=== PATIENT | female | born 1935 | race Caucasian/White ===

== ENCOUNTER 2023-10-06 09:58 | Emergency (ER) | payer MEDICARE, OTHER, SELFPAY ==
[2023-10-06 10:04] VITALS: BP 124/66
[2023-10-06 10:04] LABS: Glucose - Point of Care 139 mg/dl (70-99)
--- NOTE | 2023-10-06 10:26 | ED.GENMED ---
History of Present Illness
General
Chief Complaint: Blood Sugar Problem
Source: patient, spouse and family (2 daughters at bedside)
Exam Limitations: none
Time Seen by Provider: 10/06/23 10:17
Nursing documentation reviewed up to this point in time: agreed with
Travel History
Have you had any contact with someone who has COVID-19?: No
Do you have any symptoms of coronavirus? Fever > 100 degrees, chills, cough, shortness of breath, sore throat, loss of taste or smell, muscle aches, or headache?: No
History of Present Illness
History of Present Illness:
87 yo female w h/0 HTN, IDDM states she awakened 9 a.m. feeling 'poorly.' States nausea, no vomiting, felt shaky, chilled. [place] well last p.m., slept well through the night. Took her blood glucose but can't remember what it was, took two sugar pills
and came here. States she is feeling better, still mild nausea, declines antinausea med now. Denies CP, SOB, abdominal pain, denies UTI symptoms. Appetite has been good.
Past History
Past History
ED Past Medical History: HTN and IDDM
ED Past Surgical History: None
Social History
Tobacco: Non-smoker
Personal:
Living: with family
Review of Systems
Review of Systems
Allergies reviewed?: Yes
All Other Systems: ROS reviewed and negative except as documented in HPI and ROS
Constitutional: Reports chills; Denies fever or fatigue
EENT: Denies sore throat
Respiratory: Denies trouble breathing
Cardiac: Denies chest pain, palpitations or syncope
ABD/GI: Reports nausea; Denies abdominal pain, vomiting, diarrhea, constipated or anorexia
: Denies dysuria, frequency, flank pain, difficulty voiding or urgency
Musculoskeletal: Reports no symptoms
Skin: Reports no symptoms
Neurological: Reports no symptoms
Phy Exam
Physical Exam
Physical Exam:
GENERAL: No acute distress. A&Ox3.
CONSTITUTIONAL: Afebrile.
EYES: PERRL, conjunctivae normal
ENMT: moist mucus membranes, Pharynx nl
RESPIRATORY: Regular respirations, nonlabored, lungs clear.
CARDIOVASCULAR: Regular rate and rhythm, no murmurs, no rubs.
GI: Soft, nontender, normal BS
MUSCULOSKELETAL: Moves with ease. Well perfused.
SKIN: Warm, dry, pink
PSYCH: Normal mood and affect. Well kept, interactive and appropriate
NEUROLOGIC: Awake, alert and oriented. Speech clear, CN 2-12 intact. No focal neurological deficits, strength equal throughout
Course
Orders/Labs/Results
Orders:
Orders
10/06/23 10:36
Complete Blood Count/With Diff Urgent
Comprehensive Metabolic Panel Urgent
Abnormal Lab Results
10/06/23 10/06/23
10:02 10:36
WBC 11.3 H 10^3/uL
(4.8-10.8)
RBC 4.06 L 10^6/uL
(4.20-5.40)
MPV 11.0 H fL
(7.4-10.4)
Abs Immat Gran (auto) 0.1 H 10^3/uL
(0-0.05)
Absolute Neuts (auto) 10.8 H 10^3/uL
(1.4-6.5)
Absolute Lymphs (auto) 0.3 L 10^3/uL
(1.2-3.4)
Neutrophils % 94.9 H %
(42.2-75.2)
Lymphocytes % 2.6 L %
(20.5-51.1)
Monocytes % 1.1 L %
(1.7-9.3)
Glucose 157 H mg/dl
(70-99)
POC Glucose 139 H mg/dl
(70-99)
10/06/23 10:36
10/06/23 10:36
Vital Signs
Initial and Last Documented VS:
Initial Vital Signs
Temp Pulse Resp BP Pulse Ox
98.8 F 108 17 124/66 97
10/06/23 10:04 10/06/23 10:04 10/06/23 10:04 10/06/23 10:04 10/06/23 10:04
Last Documented Vital Signs
Temp Pulse Resp BP Pulse Ox
98.8 F 91 20 127/63 97
10/06/23 10:04 10/06/23 12:15 10/06/23 12:15 10/06/23 12:00 10/06/23 12:15
MDM/Problems Addressed
Differential Diagnosis Includes:
hypoglycemia, UTI, dehydration
MDM/Problems Addressed:
87 yo female w h/0 HTN, IDDM states she awakened 9 a.m. feeling 'poorly.' States nausea, no vomiting, felt shaky, chilled. [place] well last p.m., slept well through the night. Took her blood glucose but can't remember what it was, took two sugar pills
and came here. States she is feeling better, still mild nausea, declines antinausea med now. Denies CP, SOB, abdominal pain, denies UTI symptoms. Appetite has been good.
Afebrile NAD
12:30 PM
Patient feeling much better, no longer nauseous, she and family are anxious to get her home
She tried to give a urine sample but had a bowel movement in the container along with a urine
She has no UTI symptoms. Sent home with a container and an outpatient lab slip for UA reflex to culture.
After pt discharged, daughter went home with her and saw the glucose monitor reading during the initial event; pt's blood sugar at home during the episode was 114 so no indication for hypoglycemia.
U/A results should go to her PCP as that name was written on the out pt slip
*Critical Care Note
Total Time (30-74mins, 75-104mins- exclusive of procedures): Not Applicable
ED Attending Note
-
Portions of this chart may have been created with voice recognition software.� Occasional wrong word or��sound alike� substitutions may have occurred due to the inherent limitations of voice recognition software.
Discharge Plan
Departure
Patient Disposition: Home (Routine Discharge)
Date of Disposition: 10/06/23
Time of Disposition: 12:37
Patient with high blood pressure during this ER visit?: No
Condition: Good
Discharge Problem:
Nausea, DM2 (diabetes mellitus, type 2)
Instructions: Type 2 Diabetes (DC)
Prescriptions:
No Action
diltiazem HCl 180 MG capsule,extended release 24hr
180 mg PO BID
insulin NPH isoph U-100 human [Humulin N NPH U-100 Insulin] 100 UNIT/ML suspension
0 units SC .SLIDINGSCALE MEALS
Nephrowise 500mg
2 cap PO BID
Pgu Aid 500mg
2 cap PO BID
Referrals:
Fabricio Ryder DO [Family Provider] - As needed
Activity Restrictions/Additional Instructions:
As we discussed, continue your current Insulin regimen and other medications.
Check you blood sugars as usual 3 times a day and as needed.
You may have had low blood sugar causing your symptoms. Nothing worrisome in your workup here today.
Bring urine sample to out patient lab
Interventions
Interventions:
*Risk Screen - Suicide Last Done: 10/06/23 10:56
*General Assessment Last Done: 10/06/23 12:43
*Neglect/Abuse Screening Last Done: 10/06/23 10:56
ED- Fall Risk Assessment Last Done: 10/06/23 10:54
*ED COVID-19 Vaccine History Last Done: 10/06/23 10:53
*Nursing Disposition Last Done: 10/06/23 12:43
ED- Neurological Assessment Last Done: 10/06/23 10:53
Discharge Date and Time
Discharge Date/Time: 10/06/23 12:49
Print Language: HEBREW
[2023-10-06 10:34] VITALS: BP 141/64
[2023-10-06 10:42] LABS: % Basophils 0.4 % (0-2); % Eosinophils 0.6 % (0-6); % Immature Granulocytes 0.4 % (0-0.5); % Lymphocytes 2.6 % (20.5-51.1); % Monocytes 1.1 % (1.7-9.3); % Neutrophils 94.9 % (42.2-75.2); Absolute Eosinophils 0.1 10^3/uL (0-0.7); Absolute Immature Granulocytes 0.1 10^3/uL (0-0.05); Absolute Lymphocytes 0.3 10^3/uL (1.2-3.4); Absolute Monocytes 0.1 10^3/uL (0.1-0.6); Absolute Neutrophils 10.8 10^3/uL (1.4-6.5); Hematocrit 37.9 % (37.0-47.0); Hemoglobin 12.6 g/dL (12.0-16.0); Mean Corp Hgb Conc. 33.2 g/dL (33.0-37.0); Mean Corpuscular Volume 93.3 fL (81.0-99.0); Nucleated Red Blood Cells % 0 %; Platelet Count 174 10^3/uL (130-400); Red Blood Cell Count 4.06 10^6/uL (4.20-5.40); White Blood Cell Count 11.3 10^3/uL (4.8-10.8)
[2023-10-06 10:52] VITALS: BMI 26.9
[2023-10-06 11:00] VITALS: BP 121/57
[2023-10-06 11:05] LABS: ALT (SGPT) 21 U/L (0-35); AST (SGOT) 26 U/L (14-36); Albumin 3.9 g/dl (3.5-5.0); Alkaline Phosphatase 82 U/L (38-126); Blood Urea Nitrogen 17 mg/dl (7-17); Calcium 9.3 mg/dl (8.4-10.2); Carbon Dioxide 22 mmol/L (22-30); Chloride 104 mmol/L (98-107); Estimated Creatinine Clearance 46 ml/min; Glucose 157 mg/dl (70-99); Potassium 3.5 mmol/L (3.5-5.1); Sodium 138 mmol/L (135-145); Total Protein 6.3 g/dl (6.3-8.2); eGFR > 60.00
[2023-10-06 12:00] VITALS: BP 127/63
== END 2023-10-06 12:49 | disposition home or self-care (01) ==
LOC: EMR 09:58
PROVIDERS: Registered Nurse; EMERGENCY PHYSICIAN Emergency Medicine; FAMILY PHYSICIAN Family Medicine
DX: R11.0 Nausea (principal); R68.83 Chills (without fever); R42 Dizziness and giddiness; E11.9 Type 2 diabetes mellitus without complications; I10 Essential (primary) hypertension; Z85.3 Personal history of malignant neoplasm of breast
CPT/HCPCS: 99283; 80053; 82962; 85025

== ENCOUNTER 2024-03-20 17:51 | Inpatient (IN) | payer MEDICARE, OTHER, SELFPAY ==
[2024-03-20] VITALS (9 sets, daily range): BP systolic 134–156; BP diastolic 74–91; BMI 26.2; BMI 26.0
--- NOTE | 2024-03-20 12:05 | ED.GENMED ---
History of Present Illness
<Nyasia Segovia PA-C - Last Filed: 03/20/24 17:34>
General
Chief Complaint: Breathing Problem
Source: patient, spouse and family (2 daughters at bedside)
Exam Limitations: none
Time Seen by Provider: 03/20/24 12:00
Nursing documentation reviewed up to this point in time: agreed with
History of Present Illness
History of Present Illness:
Patient is an 88-year-old female with history hypertension, type 2 diabetes presenting to the emergency department for evaluation of worsening shortness of breath and associated lower extremity edema. Daughter states that patient has been
experiencing shortness of breath when lying flat over the past 2 weeks although seem to acutely worsen a few days ago and now is noticeable with very minimal exertion. Patient has been unable to complete her typical daily walks due to shortness of
breath. In addition�patient has been having a difficult time sleeping given symptoms while lying down. Daughter also noticed the other day that patient's ankles seemed swollen. Patient denies any pain in the ankles.
Patient does typically walk daily for 10 to 15 minutes without any difficulty. Although given symptoms at this time that she is unable to do this without becoming short of breath.
Patient does deny any chest pain, fever, chills, cough, back pain, abdominal pain, or numbness/tingling in lower extremities. No hemoptysis.
Patient has never seen a obgyn nurse in the past. No history of CAD, CHF.
Past History
<Nyasia Segovia PA-C - Last Filed: 03/20/24 17:34>
Past History
ED Past Medical History: HTN and IDDM
ED Past Surgical History: None
Social History
Tobacco: Non-smoker
Personal:
Living: with family
Review of Systems
<Nyasia Segovia PA-C - Last Filed: 03/20/24 17:34>
Review of Systems
Allergies reviewed?: Yes
All Other Systems: ROS reviewed and negative except as documented in HPI and ROS
Phy Exam
<Nyasia Segovia PA-C - Last Filed: 03/20/24 17:34>
Physical Exam
Physical Exam:
Vitals: Mildly tachycardic, hypertensive. Otherwise vital signs stable. Oxygenating 98 on room air.
General: Patient is well appearing, no acute distress
Skin: Warm and dry, no rashes or lesions
Head: Normocephalic, atraumatic
Eyes: Sclera nonicteric. EOMs intact. No nystagmus.
Throat: Protecting airway
Neck: Normal ROM, no cervical spine tenderness, no meningismus. No JVD
Cardiac: Mildly tachycardic, regular rhythm, no murmurs.
Pulm: In no apparent respiratory distress. Fine crackles at bilateral bases. Oxygenating 98% on room air
Abdomen: Mild distention. Abdomen soft with no abdominal tenderness.
Extremities: 2+ pitting edema of bilateral lower extremities. No erythema, warmth, or tenderness of bilateral lower extremities. Palpable DP pulses bilaterally.
Neuro: Grossly intact.
Psychiatric: Normal affect.
Scores
<Nyasia Segovia PA-C - Last Filed: 03/20/24 17:34>
Heart Failure Risk
Heart Failure Risk Score: Yes
History of Stroke or TIA: No
History of intubation for respiratory distress: No
Heart rate on ED arrival >/= 110: No
SaO2 <90% on arrival on room air: No
HR >/=110 during 3min walk test (or too ill to perform test): No
ECG has acute ischemic changes: No
Urea >/=12mmol/L (BUN 33.6mg/dL): No
Serum CO2>/=35mmol/L: No
Troponin I or T elevated to AL Level (0.4mg/dL): No
NT-proBNP >/=5,000ng/L (5,000pg/ml): Yes
HF Risk Score: 1
Admission Status: MEDIUM RISK 5.1% Consider observation or discharge to home with homecare & f/u visit to PCP/[facility], or SNF for treatment
Course
<Nyasia Segovia PA-C - Last Filed: 03/20/24 17:34>
Orders/Labs/Results
Orders:
Orders
03/20/24 12:32
Electrocardiogram (*1) Urgent
Reason for Study: Shortness of Breath
EKG- Treatment ONCE
CR Chest - 2 Views Urgent
Comment:
Reason For Exam: Exertional SOB, orthopnea
03/20/24 13:13
Complete Blood Count/With Diff Urgent
Comprehensive Metabolic Panel Urgent
NT-proBNP Urgent
Troponin I Urgent
03/20/24 Dinner
1800 calorie (15 carb) Diabetic
Diabetic Diet: Sodium, 2 Gram
03/20/24 15:05
Furosemide [Lasix] 40 mg IV NOW STA
03/20/24 15:33
Admit Patient As Directed
Co-Sign Provider:
Level of Care: Inpatient admission
Assign to:: Medical/Surgical
Physician / Group: Hospitalist
Diagnosis: Acute CHF Exacerbation
Patient Condition: Good
Reason for Hospitalization: Acute CHF Exacerbation
Expected length of stay greater than two midnights?: Yes
ELOS- Estimated Length of Stay in days: 3
I certify the patient meets the requirements for IP care: Yes
Code Status As Directed
Resuscitation Status: Full Code
HF DIETARY CONSULT Routine
HF EDUCATOR CONSULT Routine
Comment:
Activity As Directed
Activity Level: Out of Bed-Early Mobility
Intake/ Output As Directed
Frequency: Per unit guidelines
Patient Education As Directed
Type: CHF folder
Comment: give on admission. Document in Interdisciplinary Education record
Sleep Apnea Assessment by RN As Directed
Comment:
Physician Instructions:
Vital Signs As Directed
Frequency: Other
Additional Instructions:: Q12 or per unit guidelines if more frequent.
Weight As Directed
Frequency: Daily
Type of Scale: Standing Scale
Comment: Daily morning weight. If unable to stand, use balanced bed scale.
Weight As Directed
Frequency: Once
Type of Scale: Standing Scale
Comment: Upon Admission. If unable to stand, use balanced bed scale.
PRN Pain Medication Management As Directed
May give lesser potent ordered pain med per pt: Yes
preference::
Protocol:: Medication orders for pain may be administered in a
manner that supports deferring to patient preference
when the pt is:
- Requesting an ordered lesser potent pain medication.
Least to most potent pain medications are defined
as: acetaminophen < NSAID < tramadol < opioids
(morphine, oxycodone, hydromorphone).
- Requesting a lesser dose of the same medication IF
ORDERED.
- Requesting a less intrusive route of administration
if both routes are prescribed by the provider (PO <
IV).
Pulse Ox/cont/shift [RESP] Routine
Quantity: 1
Special Instructions: Daily pulse oximetry at rest. If greater than 92% at rest also obtain pulse oximetry
while ambulating as tolerated.
03/20/24 15:34
DX Deep Vein Thrombosis Video Routine
03/20/24 15:36
Echo 2D MMode Color/Doppler Routine
Reason for Study: heart failure
03/20/24 16:00
Flush (0.9% Sodium Chloride) [Flush (Nss)] See Dose Instructions IV PER PROTOCOL
Furosemide [Lasix] 40 mg IV BID AT 0800,1600
03/20/24 16:28
CARDIOLOGY CONSULT Routine
Consulting Provider: Amado Barber
Was physician already notified: Yes
Reason for consult: New Diagnosis Acute CHF Exacerbation
03/20/24 16:45
I&O [Intake/ Output] As Directed
Frequency: Per unit guidelines
Comment: daily
03/20/24 18:00
Enoxaparin Sodium [Lovenox] 40 mg SC QPM
03/21/24 16:00
Furosemide [Lasix] 40 mg IV BID AT 0800,1600
Abnormal Lab Results
03/20/24
13:13
RBC 3.93 L 10^6/uL
(4.20-5.40)
Hgb 11.7 L g/dL
(12.0-16.0)
Hct 35.0 L %
(37.0-47.0)
MPV 11.3 H fL
(7.4-10.4)
Abs Immat Gran (auto) 0.1 H 10^3/uL
(0-0.05)
Absolute Neuts (auto) 7.2 H 10^3/uL
(1.4-6.5)
Absolute Lymphs (auto) 1.1 L 10^3/uL
(1.2-3.4)
Neutrophils % 78.2 H %
(42.2-75.2)
Lymphocytes % 12.1 L %
(20.5-51.1)
BUN 19 H mg/dl
(7-17)
Glucose 181 H mg/dl
(70-99)
03/20/24 13:13
03/20/24 13:13
Vital Signs
Initial and Last Documented VS:
Initial Vital Signs
Temp Pulse Resp BP Pulse Ox
97.8 F 107 18 154/91 98
03/20/24 11:54 03/20/24 11:54 03/20/24 11:54 03/20/24 11:54 03/20/24 11:54
Last Documented Vital Signs
Temp Pulse Resp BP Pulse Ox
97.8 F 94 32 138/90 100
03/20/24 11:54 03/20/24 16:00 03/20/24 16:00 03/20/24 16:00 03/20/24 16:00
<Jessica Del Castillo, DO - Last Filed: 03/20/24 15:08>
Orders/Labs/Results
Orders:
Orders
03/20/24 12:32
Electrocardiogram (*1) Urgent
Reason for Study: Shortness of Breath
EKG- Treatment ONCE
CR Chest - 2 Views Urgent
Comment:
Reason For Exam: Exertional SOB, orthopnea
03/20/24 13:13
Complete Blood Count/With Diff Urgent
Comprehensive Metabolic Panel Urgent
NT-proBNP Urgent
Troponin I Urgent
03/20/24 Dinner
1800 calorie (15 carb) Diabetic
Diabetic Diet: Sodium, 2 Gram
03/20/24 15:05
Furosemide [Lasix] 40 mg IV NOW STA
03/20/24 15:33
Admit Patient As Directed
Co-Sign Provider:
Level of Care: Inpatient admission
Assign to:: Medical/Surgical
Physician / Group: Hospitalist
Diagnosis: Acute CHF Exacerbation
Patient Condition: Good
Reason for Hospitalization: Acute CHF Exacerbation
Expected length of stay greater than two midnights?: Yes
ELOS- Estimated Length of Stay in days: 3
I certify the patient meets the requirements for IP care: Yes
Code Status As Directed
Resuscitation Status: Full Code
HF DIETARY CONSULT Routine
HF EDUCATOR CONSULT Routine
Comment:
Activity As Directed
Activity Level: Out of Bed-Early Mobility
Intake/ Output As Directed
Frequency: Per unit guidelines
Patient Education As Directed
Type: CHF folder
Comment: give on admission. Document in Interdisciplinary Education record
Sleep Apnea Assessment by RN As Directed
Comment:
Physician Instructions:
Vital Signs As Directed
Frequency: Other
Additional Instructions:: Q12 or per unit guidelines if more frequent.
Weight As Directed
Frequency: Daily
Type of Scale: Standing Scale
Comment: Daily morning weight. If unable to stand, use balanced bed scale.
Weight As Directed
Frequency: Once
Type of Scale: Standing Scale
Comment: Upon Admission. If unable to stand, use balanced bed scale.
PRN Pain Medication Management As Directed
May give lesser potent ordered pain med per pt: Yes
preference::
Protocol:: Medication orders for pain may be administered in a
manner that supports deferring to patient preference
when the pt is:
- Requesting an ordered lesser potent pain medication.
Least to most potent pain medications are defined
as: acetaminophen < NSAID < tramadol < opioids
(morphine, oxycodone, hydromorphone).
- Requesting a lesser dose of the same medication IF
ORDERED.
- Requesting a less intrusive route of administration
if both routes are prescribed by the provider (PO <
IV).
Pulse Ox/cont/shift [RESP] Routine
Quantity: 1
Special Instructions: Daily pulse oximetry at rest. If greater than 92% at rest also obtain pulse oximetry
while ambulating as tolerated.
03/20/24 15:34
DX Deep Vein Thrombosis Video Routine
03/20/24 15:36
Echo 2D MMode Color/Doppler Routine
Reason for Study: heart failure
03/20/24 16:00
Flush (0.9% Sodium Chloride) [Flush (Nss)] See Dose Instructions IV PER PROTOCOL
Furosemide [Lasix] 40 mg IV BID AT 0800,1600
03/20/24 16:28
CARDIOLOGY CONSULT Routine
Consulting Provider: Amado Barber
Was physician already notified: Yes
Reason for consult: New Diagnosis Acute CHF Exacerbation
03/20/24 16:45
I&O [Intake/ Output] As Directed
Frequency: Per unit guidelines
Comment: daily
03/20/24 18:00
Enoxaparin Sodium [Lovenox] 40 mg SC QPM
03/21/24 16:00
Furosemide [Lasix] 40 mg IV BID AT 0800,1600
Abnormal Lab Results
03/20/24
13:13
RBC 3.93 L 10^6/uL
(4.20-5.40)
Hgb 11.7 L g/dL
(12.0-16.0)
Hct 35.0 L %
(37.0-47.0)
MPV 11.3 H fL
(7.4-10.4)
Abs Immat Gran (auto) 0.1 H 10^3/uL
(0-0.05)
Absolute Neuts (auto) 7.2 H 10^3/uL
(1.4-6.5)
Absolute Lymphs (auto) 1.1 L 10^3/uL
(1.2-3.4)
Neutrophils % 78.2 H %
(42.2-75.2)
Lymphocytes % 12.1 L %
(20.5-51.1)
BUN 19 H mg/dl
(7-17)
Glucose 181 H mg/dl
(70-99)
03/20/24 13:13
03/20/24 13:13
Vital Signs
Initial and Last Documented VS:
Initial Vital Signs
Temp Pulse Resp BP Pulse Ox
97.8 F 107 18 154/91 98
03/20/24 11:54 03/20/24 11:54 03/20/24 11:54 03/20/24 11:54 03/20/24 11:54
Last Documented Vital Signs
Temp Pulse Resp BP Pulse Ox
97.8 F 94 32 138/90 100
03/20/24 11:54 03/20/24 16:00 03/20/24 16:00 03/20/24 16:00 03/20/24 16:00
<Nyasia Segovia PA-C - Last Filed: 03/20/24 17:34>
MDM/Problems Addressed
Differential Diagnosis Includes:
Not limited to: New onset CHF, ACS, pleural effusion, pneumonia, cardiac arrhythmia, anemia, viral illness
MDM/Problems Addressed:
88-year-old female presents with exertional dyspnea and orthopnea progressively worsening over the past few weeks with new onset bilateral lower extremity edema. No chest pain, fevers, cough, or other infectious symptoms. No history of similar
symptoms. Patient mildly tachycardic, otherwise vital signs stable on arrival. She is afebrile and oxygenating well at 98% on room air. Physical exam as above. Patient is in no apparent respiratory distress. Heart mildly tachycardic, normal
rhythm. Fine crackles heard at bilateral bases. Abdomen soft and nontender, although mildly distended. She does have 1+ pitting edema in bilateral lower extremities. Patient does appear clinically fluid overloaded. Differentials broad although
include new onset CHF, viral infection, anemia, cardiac arrhythmia, etc. lower suspicion for infectious etiology given patient is afebrile with no other infectious symptoms. Will check labs, troponin, proBNP. Will check chest x-ray. EKG without
any acute signs of ischemia. Will closely monitor and reassess. Anticipate admission.
Chronic conditions affecting care:
Hypertension, type 2 diabetes
Acute Exacerbation and/or Progression of Chronic Illness:
Acutely hypertensive
<Nyasia Segovia PA-C - Last Filed: 03/20/24 17:34>
*Radiology
Radiology exam reviewed: preliminary read by ED provider and radiology read reviewed
*Pulse Oximetry
Patient hypoxic: no
*EKG
Interpreted by ED Provider?: Yes
EKG Intrepretation Date: 03/20/24
Interpretation: normal
Comparison EKG: changes noted
Heart Rate: 95
Rate: normal
Rhythm: sinus
[place]: left axis deviation
Interval: normal interval
Ischemia: non-specific ST changes
*Demo Event Specialist Interpretation
Rate: normal
Interpretation: normal
Heart Rate: 92
Rhythm: sinus
*Critical Care Note
Total Time (30-74mins, 75-104mins- exclusive of procedures): Not Applicable
<Nyasia Segovia PA-C - Last Filed: 03/20/24 17:34>
Patient Management
Discussion with other providers: Hospitalist
Escalation/DeEscalation of care consider admission/obs:
Admit for further evaluation, echocardiogram, and continue diuresis
<Nyasia Segovia PA-C - Last Filed: 03/20/24 17:34>
Update Note
Update Note:
Update: Labs reviewed. No clinically significant abnormalities on blood counts, chemistry panel. Troponin is normal. BNP is elevated at 5350. Chest x-ray shows findings consistent of mild pulmonary edema. Findings consistent with likely CHF.
Do not suspect infectious process. Patient is relatively stable oxygenating well on room air. Patient does appear clinically fluid overloaded on exam. Given likely new onset CHF�will admit to hospital for further evaluation/continue diuresis.
Patient will likely require echocardiogram. Will give 40 IV Lasix emergency department. Patient admitted to hospitalist service in stable condition.
ED Attending Note
<Nyasia Segovia PA-C - Last Filed: 03/20/24 17:34>
-
Portions of this chart may have been created with voice recognition software.� Occasional wrong word or��sound alike� substitutions may have occurred due to the inherent limitations of voice recognition software.
<Jessica Del Castillo DO - Last Filed: 03/20/24 15:08>
ED Attending Note
Patient seen and examined by attending physician: Yes
I performed the substantive portion of visit, reviewed & personally made and approve the management plan that is documented in note by myself or LIBAN.: Yes
I performed a history and physical exam of patient and discussed management with resident, I reviewed resident's note and agree with documented findings and plan of care.: Yes
ED Attending Note:
88-year-old female with history of diabetes and hypertension presenting to the emergency department for progressive dyspnea. Patient arrives with family, note for the past 2 weeks she has been having increased dyspnea, particular with any type of
exertion. She has had a difficulty walking to get her mail from her mailbox. Last evening had difficulty sleeping, could not lay flat. Denies any known history of congestive heart failure. She has been having lower extremity swelling. Denies
chest pain. Denies fever or cough. Vital signs on arrival significant for high blood pressure.
On exam patient is in no acute respiratory distress. On pulmonary exam, crackles at the bases, no significant increased work of breathing. +1-2 lower extremity edema. No erythema or warmth on palpation to the extremities. Suspect new onset heart
failure. Plan for laboratory analysis and chest x-ray imaging. Lower suspicion for infectious pathology.
15:00 - Chest x-ray does show pulmonary edema and BNP is elevated, again consistent with new onset heart failure. Will start on Lasix. Plan for admission for cardiac consultation and continue diuresis
Discharge Plan
Departure
Patient Disposition: Admit
Date of Disposition: 03/20/24
Time of Disposition: 15:05
Presentation/result/management discussed w/ accepting MD/DO: Hospitalist
Discharge Problem:
New onset of congestive heart failure, [place] (dyspnea on exertion), Orthopnea
Prescriptions:
No Action
diltiazem HCl 180 MG capsule,extended release 24hr
180 mg PO BID
Humulin N NPH U-100 Insulin 100 UNIT/ML suspension
0 unit SC AC
Rx Instructions:
SLIDING SCALE
Nephrowise 500mg
2 cap PO BID
Pgu Aid 500mg
2 cap PO BID
vanadyl 10 mg Tablet
10 mg PO BID
ascorbic acid (vitamin C) [Vitamin C] 500 mg Tablet
500 mg PO BID
aspirin 81 mg Tablet,Chewable
81 mg PO DAILY
vitamin B complex Tablet
1 tab PO BID
cholecalciferol (vitamin D3) [Vitamin D3] 125 mcg (5,000 unit) Tablet
125 mcg PO DAILY
omega 8-[id number]-tgt-fish oil [Fish Oil] 1,000 (120-180) mg Capsule
1 cap PO BID
Nattokinase 50 mg Capsule
50 mg PO AC
vitamin K2 90 mcg Capsule
90 mcg PO DAILY
Referrals:
Fabricio Ryder DO [Family Provider] -
Interventions
Interventions:
*Risk Screen - Suicide Last Done: 03/20/24 13:25
*General Assessment Last Done: 03/20/24 13:25
*Neglect/Abuse Screening Last Done: 03/20/24 14:31
ED- Fall Risk Assessment Last Done: 03/20/24 13:25
*ED COVID-19 Vaccine History Last Done: 03/20/24 13:25
ED- Cardiac Assessment Last Done: 03/20/24 13:25
ED- Pulmonary Assessment Last Done: 03/20/24 13:25
Discharge Date and Time
Print Language: SERBIAN
[2024-03-20 13:33] LABS: % Basophils 0.8 % (0-2); % Eosinophils 1.7 % (0-6); % Immature Granulocytes 0.5 % (0-0.5); % Lymphocytes 12.1 % (20.5-51.1); % Monocytes 6.7 % (1.7-9.3); % Neutrophils 78.2 % (42.2-75.2); Absolute Basophils 0.1 10^3/uL (0-0.2); Absolute Eosinophils 0.2 10^3/uL (0-0.7); Absolute Immature Granulocytes 0.1 10^3/uL (0-0.05); Absolute Lymphocytes 1.1 10^3/uL (1.2-3.4); Absolute Monocytes 0.6 10^3/uL (0.1-0.6); Absolute Neutrophils 7.2 10^3/uL (1.4-6.5); Hemoglobin 11.7 g/dL (12.0-16.0); Mean Corp Hgb Conc. 33.4 g/dL (33.0-37.0); Mean Corpuscular Hgb 29.8 pg (27.0-31.0); Mean Corpuscular Volume 89.1 fL (81.0-99.0); Mean Platelet Volume 11.3 fL (7.4-10.4); Nucleated Red Blood Cells % 0 %; Platelet Count 200 10^3/uL (130-400); Red Blood Cell Count 3.93 10^6/uL (4.20-5.40); Red Cell Dist. Width 13.8 % (11.5-14.5); White Blood Cell Count 9.2 10^3/uL (4.8-10.8)
[2024-03-20 13:48] LABS: ALT (SGPT) 24 U/L (0-35); AST (SGOT) 30 U/L (14-36); Albumin 3.9 g/dl (3.5-5.0); Alkaline Phosphatase 85 U/L (38-126); Blood Urea Nitrogen 19 mg/dl (7-17); Carbon Dioxide 22 mmol/L (22-30); Chloride 107 mmol/L (98-107); Glucose 181 mg/dl (70-99); Potassium 3.5 mmol/L (3.5-5.1); Sodium 143 mmol/L (135-145); Total Bilirubin 0.8 mg/dl (0.2-1.3); Total Protein 6.3 g/dl (6.3-8.2); eGFR > 60.00
[2024-03-20 13:57] LABS: NT-proBNP 5350 pg/ml; Troponin I 0.022 ng/ml
--- NOTE | 2024-03-20 15:13 | W.PN.UPDATE ---
Update Note
Progress Note Update
I personally performed a history and physical exam of the patient and discussed management with the resident. I reviewed the resident's note and agree with the documented findings and plan of care HPI/CC.
88-year-old female presents with chief complaints of shortness of breath and lower extremity edema.
137/76, 89, 20, 97.8 �F, 94% RA
Gen: NAD, AAOx3.
Eyes: EOMI, PERRLA, no scleral icterus.
Neck: supple.
CV: RRR, +S1/S2, no m/r/g.
Resp: very faint rales in the bases, wheezes, or rhonchi.
Abd: +BS, soft, NT, ND
Skin: No rashes. trace LE edema
Neuro: CN 2-12 intact, non-focal.
Psych: Normal mood and affect.
Lab Results
03/20/24
13:13
WBC 9.2
RBC 3.93 L
Hgb 11.7 L
Hct 35.0 L
MCV 89.1
MCH 29.8
MCHC 33.4
RDW 13.8
Plt Count 200
MPV 11.3 H
Abs Immat Gran (auto) 0.1 H
Absolute Neuts (auto) 7.2 H
Absolute Lymphs (auto) 1.1 L
Absolute Monos (auto) 0.6
Absolute Eos (auto) 0.2
Absolute Basos (auto) 0.1
Immature Gran % 0.5
Neutrophils % 78.2 H
Lymphocytes % 12.1 L
Monocytes % 6.7
Eosinophils % 1.7
Basophils % 0.8
Nucleated RBC % 0
Sodium 143
Potassium 3.5
Chloride 107
Carbon Dioxide 22
BUN 19 H
Creatinine 0.8
eGFR > 60.00
Glucose 181 H
Calcium 10.0
Total Bilirubin 0.8
AST 30
ALT 24
Alkaline Phosphatase 85
Troponin I 0.022
Ogt-I-Wctvrxmvowx Pept 5350
Total Protein 6.3
Albumin 3.9
CXR (read by me): Overall pulmonary findings are consistent with changes of COPD. In addition cardiomegaly and mild increase in pulmonary vascularity suggests possible CHF.
Acute CHF Exac:
-check echo, GDMT to be determined based on echo
-cont with Lasix 40mg IV Q12H
-daily wts, I/Os
-c/s cardiology
[2024-03-20] MEDS: LASIX 40 MG IV (15:51)
--- NOTE | 2024-03-20 16:30 | HPS.HSE ---
Family Physician
-
Family Physician: Fabricio Ryder
Chief Complaint
-
Dyspnea of Exertion, Leg Swelling
History of Present Illness
Laura Zuniga is a pleasant 88 yo woman who was brought to the ED by her daughter for 2 weeks of increased shortness of breath, dyspnea on exertion, leg swelling and trouble sleeping.
The daughter reports that her mother has been having shortness of breath on their daily walks over the last 2 weeks, which she could previously tolerate without issue. She has also been having trouble sleeping due to shortness of breath. It was also
noticed that there was swelling in the legs which has never happened before. Today, her daughter checked a pulse Ox on Mrs. Sanchez which was 88%. At this point, they decided to bring her to the ED for evaluation.
She was given one dose of 40mg IV Lasix prior to my evaluation and her O2 saturations have been between 89% and 100% on RA.
Medical History
Past Medical History
Past Medical History: Reports HTN and IDDM (20-25 Units AM, 15-20 Units PM )
Past Surgical History: Reports Tonsilectomy
Social History
Unable to obtain full social history at this time due to: Dementia (Pleasant but forgetful)
Tobacco: Non-smoker
Alcohol: Daily (1 glass of wine with dinner 5d/week, x10 years)
Drug: None
Personal:
Living: With Family
Employment: Retired
Family History
Family History: Diabetes
Allergies / Home Medications
Allergies reflects when Allergies were last updated in [facility].
Home Medications with original date entered in [facility]
Allergy/Medication List:
Allergies
Allergy/AdvReac Type Severity Reaction Status Date / Time
No Known Allergies Allergy Verified 03/20/24 11:57
Review of Systems
-
Unable to obtain full review of systems at this time due to: Dementia
History Source: Patient and Family
A 12 point ROS was completed and negative except as noted: Yes
Constitutional: Reports No Symptoms
EENT: Reports No Symptoms
Respiratory: Reports Trouble Breathing
Cardiac: Reports No Symptoms
Abdomen/GI: Reports No Symptoms
: Reports Incontinence (Chronic; unchanged)
Musculoskeletal: Reports Edema (BL LE swelling)
Skin: Reports No Symptoms
Neurological: Reports No Symptoms
Endocrine: Reports No Symptoms
Hematologic/Lymphatic: Reports No Symptoms
Psych: Reports Dementia (Memory/Cognitive decline over the past few years)
Physical Exam
Vital Signs
Vital Signs
Temp Pulse Resp BP Pulse Ox
97.8 F 94 32 138/90 100
03/20/24 11:54 03/20/24 16:00 03/20/24 16:00 03/20/24 16:00 03/20/24 16:00
Physical Exam
General: Well Developed, Well Nourished, No Apparent Distress, Comfortable and Conversant; No Appears in Distress
HEENT: NormoCephalic, Anicteric, Moist mucous membranes, Atraumatic and PERRLA
Respiratory: Crackles (mild end inspiratory crackles at the BL bases)
Cardiac: S1/S2 and Regular Rhythm
Breast: Deferred by me
GI: Soft, Non Tender, Non Distended and Normal Bowel Sounds
Rectal: Deferred by Provider
Genito-urinary: Deferred by me
Musculoskeletal: No Clubbing, No Cyanosis, Edema, Left Lower Extremity (1+) and Edema, Right Lower Extremity (1+)
Neuro: Awake, Alert, Oriented, No Motor Deficits and No Sensory Deficits
Psych: Calm
Laboratory Results
-
03/20/24 13:13
03/20/24 13:13
Laboratory Results
Total Bilirubin 0.8 mg/dl (0.2-1.3) 03/20/24 13:13
AST 30 U/L (14-36) 03/20/24 13:13
ALT 24 U/L (0-35) 03/20/24 13:13
Alkaline Phosphatase 85 U/L (38-126) 03/20/24 13:13
Troponin I 0.022 ng/ml 03/20/24 13:13
Impression/Plan
-
88yo Female with a PMHx of HTN, IDDM who presented with Dyspnea on exertion x2 weeks & BL LE leg swelling
Daughters Chelsea & Kylie
#Most Likely Acute Exacerbation of Heart Failure
- Prob BNP -5350. CXR (+) increased pulmonary vascularity & enlarged heart. Pending Echo
- S/p 40mg IV Lasix
- daily I/Os, daily weights, c/w Lasix 40mg BID
- trend BMP
- Cardiology consulted, will see in the AM. Pending recommendations for possible GDMT following Echo results/EF%.
#Hypertension - c/w home Diltiazem 180mg BID
Holding other vitamins during this time.
#Dispo - Med/surg + Tele
#Diet - Diabetic Diet/ <2g salt
#DVT PPx - Lovenox SC
#Code Status - Full Code
[2024-03-20] MEDS: LOVENOX 40 MG SC (21:11)
[2024-03-20] MEDS: CARDIZEM CD 180 MG PO (21:11)
[2024-03-20 21:12] LABS: Glucose - Point of Care 119 mg/dl (70-99)
[2024-03-20] MEDS: HUMULIN N KWIKPEN 11 UNITS SC (21:26)
--- NOTE | 2024-03-20 21:30 | PTCARENOTE ---
Pt arrived to unit @ 1945 vis stretcher able to walk with assistance to bed. Pt's daughter assisted with admission questions. Pt 2 daughters are very involved in pt's care managing her daily medications and ADLs at pt's own home with pt's spouse.
Daughter reports that they manage pt's blood glucose with s/s insulin depending on her meal and prefer for her not to have scheduled insulin. I spoke with HP for this evening and reported to give her 11 units per daughters request. Daughter also
reports her mother has dementia and can be confused when woken up. Bed alarm placed and activated for this shift. Pt and daughter oriented to room and hospital policies, VSS, call pappas within reach
--- NOTE | 2024-03-20 21:30 | W.PN.UPDATE ---
Update Note
Progress Note Update
Family requested insulin to be 11 units this evening. Order changed to reflect this request.
--- NOTE | 2024-03-21 02:08 | PTCARENOTE ---
Pt daughters, who manage pt's daily medications @ home report they give s/s NPH insulin according to pt's meals and blood glucose. Currently the pt has scheduled 0800 and 2000 doses. Pt's daughter are concerned r/t to pt's oral intake and that her
blood glucose can drop quick. She would like the MD to speak with them concerning the dose of insulin gong forward next shift.
[2024-03-21 02:36] LABS: Glucose - Point of Care 131 mg/dl (70-99)
--- NOTE | 2024-03-21 02:36 | PTCARENOTE ---
blood glucose checked at this time per family request 131. Pt has no s/s of hypoglycemia.
--- NOTE | 2024-03-21 07:18 | CON.CAR ---
Addendum entered and electronically signed by Jacinto Solorio MD 03/21/24 12:11:
I saw and examined the patient.
The JAMMER HOOKER or PA's note was reviewed and I agree with the note.
Comment: General: Well developed, well nourished in NAD.
Neck: Supple, no JVD, HJR, carotids +2 B/L, no bruits bilaterally.
Heart: Non displaced PMI, RRR, no murmurs, No S3, S4, no rubs.
Lungs: Clear to auscultation bilaterally, no wheeze, rhonchi, rubs bilaterally,
normal expiratory phase.
Extremities: No clubbing, cyanosis or edema bilaterally.
Neuro: Grossly nonfocal, awake, alert and oriented x3.
Laura has a history of diabetes, cognitive impairment, acute kidney injury after IV contrast. She presented with increasing dyspnea on exertion for 2 weeks, orthopnea, lower extremity edema. Home pulse ox was 88%. She is admitted with acute
systolic CHF with proBNP of 5350. Echocardiogram with ejection fraction of 20% with moderate to severe MR. She has had significant improvement with IV Lasix.
Long discussed with patient and patient's daughter both in person and by phone. We discussed possible cardiac catheterization as the most common cause of cardiomyopathy is CAD. However patient and daughters prefer medical therapy for now. Will
start Toprol and stop diltiazem. Will start losartan as well. Will check on the cost of Farxiga/Jardiance as well. Might consider eventual Aldactone. Will continue to follow renal function closely. Might consider change to oral Lasix and
discharge on 03/22. Of note patient might consider catheterization if does poorly on medical therapy or if her ejection fraction does not improve. We would have to have discussion about AICD if ejection fraction remains less than 35%. Discussed
with primary service as well.
Original Note:
Documented by User: ANABELA Sanchez 03/21/24 11:51
Consultation
Consultation Request
Date/Time Consultation Requested: 03/20/24 1630
Date/Time Consultation Performed: 03/21/24 0730
Requesting Provider: Gio Vieyra MD
Performing Provider: ANABELA Sanchez for
Reason for Consultation: new acute heart failure
Medical History
-
Chief Complaint: [place]
History of Present Illness:
88 year old female with past medical history hypertension, type 1 diabetes, cognitive impairment, acute kidney injury following IV contrast who presented to the ED 03/20/2024 with 2-week history of dyspnea on exertion, orthopnea, and lower extremity
edema. Home pulse ox was 88% and family decided to bring her in for evaluation. Labs in the ER showed proBNP 5350, troponin 0.022. A chest x-ray showed findings consistent with changes of COPD, cardiomegaly, and possible heart failure. An
echocardiogram showed an EF of 20% with severe LV dilatation and global hypokinesis, and mod/severe to severe MR. She was given a dose of 40 mg IV Lasix with improvement in O2 sats and symptoms.
Cardiology is consulted for new diagnosis of heart failure reduced EF.
Patient reports she feels well and currently denies shortness of breath, chest pain, palpitations, lightheadedness, PND, orthopnea, edema.
She is unclear why she came into the hospital yesterday, just that she did not feel well.
I spoke with her daughter Chelsea Joshi, to review past medical history and onset of symptoms.
Past medical history:
Hypertension
Type 1 diabetes
Cognitive impairment
Stage 1 breast CA
Acute kidney injury following IV contrast for CT scan 01/21 (CT scan w/ contrast for eval of L breast mass at [facility])- creatinine 9, potassium 5.8, thought to be acute kidney injury due to contrast with addition of CARITO inhibitor.
Lisinopril and Indapamide stopped - changed to Diltiazem for HTN. Creatinine improved to normal range.
Echo 03/20/24 EF 20%, dilated LV with global hypokinesis, normal RV, mod-severe MR, mild TR, PASP 38 mmHg
Social History
Tobacco: Non-Smoker
Alcohol: Occasional
Drug: None
Personal:
Living: With Family
Family History
Family History: Diabetes
Allergies / Home Medications
Allergy/AdvReac Type Severity Reaction Status Date / Time
No Known Allergies Allergy Verified 03/20/24 11:57
�Medication �Instructions �Recorded �Confirmed �Type
Nephrowise 500mg 2 cap PO BID 01/17/20 03/20/24 History
Pgu Aid 500mg 2 cap PO BID 01/17/20 03/20/24 History
diltiazem HCl 180 mg 180 mg PO BID 01/17/20 03/20/24 History
capsule,extended release 24 hr
insulin NPH isoph U-100 human 100 0 unit SC AC 01/17/20 03/20/24 History
unit/mL subcutaneous suspension
(Humulin N NPH U-100 Insulin
(isophane susp))
ascorbic acid (vitamin C) 500 mg 500 mg PO BID 03/20/24 03/20/24 History
tablet (Vitamin C)
aspirin 81 mg chewable tablet 81 mg PO DAILY 03/20/24 03/20/24 History
cholecalciferol (vitamin D3) 125 125 mcg PO DAILY 03/20/24 03/20/24 History
mcg (5,000 unit) tablet (Vitamin
D3)
omega 0-ydf-ujz-fish oil 1,000 mg 1 cap PO BID 03/20/24 03/20/24 History
(120 mg-180 mg) capsule (Fish Oil)
soybean, fermented 50 mg capsule 50 mg PO AC 03/20/24 03/20/24 History
(Nattokinase)
vanadyl 10 mg tablet 10 mg PO BID 03/20/24 03/20/24 History
vitamin B complex 1 tab PO BID 03/20/24 03/20/24 History
vitamin K2 90 mcg capsule 90 mcg PO DAILY 03/20/24 03/20/24 History
Review of Systems
-
Unable to obtain full review of systems at this time due to: Dementia
History Source: Patient and Family
All other systems: Negative unless noted
Physical Exam
Vital Signs
Temp Pulse Resp BP Pulse Ox
98.9 F 99 18 134/74 94
03/20/24 23:02 03/20/24 23:02 03/20/24 23:02 03/20/24 23:02 03/20/24 23:02
Lab Results
03/20/24 13:13
03/20/24 13:13
Troponin I 0.022 ng/ml 03/20/24 13:13
Xpi-M-Wxqxjrpnnzd Pept 5350 pg/ml 03/20/24 13:13
GEN: No distress, awake, Ox3
HEENT: supple, anicteric, mmm
LUNGS: CTA, no wheezes/rales
CV: Reg, S1/S2, no murmur
ABD: soft, BS+, NT/ND
EXT: No edema
NEURO: Gross non-focal
SKIN: No rash
Impression / Plan
-
PCP:Dr Fabricio Ryder
Primary Hand Edge Bander:
Impression:
acute HFrEF
HTN
DM Type 1
[place]
LE edema
dementia
Acute kidney injury secondary to IV contrast 01/21
Stage I breast CA 2019
Cardiovascular studies:
Echo 03/20/24 EF 20%, dilated LV with global hypokinesis, normal RV, mod-severe MR, mild TR, PASP 38 mmHg
EK03/20/24 personally reviewed: NSR, LAD, can't r/o ant DE, nonspecific T wave abnormality
Plan:
1. Acute heart failure with reduced EF
-responded well to 1 dose of IV Lasix with improvement in shortness of breath and edema. Patient has no prior history of decompensated heart failure and has not had an echocardiogram in the past. Would start GDMT-stop diltiazem and start Toprol.
Trial of low-dose ARB with close monitoring of renal function given acute kidney injury in the past which was thought to be caused by IV contrast from a CT scan. Could consider adding SGLT-2 inhibitor in future if renal function stable with
addition of ARB. Spoke with daughter about further evaluation of new cardiomyopathy including ischemic workup. Patient has had no anginal symptoms and troponin negative but given history of diabetes and age, has risk factors.
-Change to oral Lasix starting tomorrow
-Low-sodium diet
-I's/O and daily weights
-Place on telemetry
2. Hypertension
-Has been on diltiazem for hypertension which is contraindicated in heart failure. Changed to beta-alison/ARB as above. Blood pressure is controlled.
3. Cognitive dysfunction
-Discussed with daughter potential workup for new cardiomyopathy. Family would like to talk to PCP to further discuss her case/new diagnosis.
4. Type 1 diabetes
-Managed with Insulin.
Spoke with daughter Chelsea Joshi [phone]
Data Reviewed
-
EKG: Tracing Personally Visualized and interpreted
Radiology: Image Personally Visualized and interpreted and Report Reviewed by me
Medical Tests (Nuc Med, Echo etc): Report Reviewed by me
Labs: Labs Reviewed by me

Documented by User: César Davis MD 03/21/24 08:57
Consultation
Consultation Request
Performing Provider: ANABELA Sanchez for Jacinto Solorio MD
Medical History
-
History of Present Illness:
88 year old female with past medical history hypertension, type 1 diabetes, dementia presented to the ED 03/20/2024 with 2-week history of dyspnea on exertion, orthopnea, and lower extremity edema. Home pulse ox was 88%. Labs in the ER showed
proBNP 5350, troponin 0.022. A chest x-ray showed findings consistent with changes of COPD, cardiomegaly, and possible heart failure. An echocardiogram showed an EF of 20% with severe LV dilatation and global hypokinesis, and mod/severe to severe
MR. She was given a dose of 40 mg IV Lasix with improvement in O2 sats.
Cardiology is consulted for new diagnosis of heart failure reduced EF.
Patient reports she feels well and currently denies shortness of breath, chest pain, palpitations, lightheadedness, PND, orthopnea, edema.
She is unclear why she came into the hospital yesterday, just that she did not feel well.
Echo 03/20/24 EF 20%, dilated LV with global hypokinesis, normal RV, mod-severe MR, mild TR, PASP 38 mmHg
Past Medical History
Past Medical History: Other (as above)
Past Surgical History: Tonsilectomy
Impression / Plan
-
PCP:Dr Fabricio Ryder
Primary Hand Edge Bander:
Impression:
acute decompensated HFrEF
HTN
DM Type 1
[place]
LE edema
dementia
Cardiovascular studies:
Echo 03/20/24 EF 20%, dilated LV with global hypokinesis, normal RV, mod-severe MR, mild TR, PASP 38 mmHg
EK03/20/24 personally reviewed: NSR, LAD, can't r/o ant DE, nonspecific T wave abnormality
[2024-03-21 07:35] VITALS: BP 128/64
[2024-03-21 07:47] LABS: Glucose - Point of Care 167 mg/dl (70-99)
--- NOTE | 2024-03-21 07:52 | W.PN.HOSP.TC ---
Addendum entered and electronically signed by Erwin Devries MD 03/21/24 12:09:
I saw and evaluated the patient. I reviewed the resident�s note and agree with findings and plan as documented in the resident�s note.
Currently denies chest pain or shortness of breath.
Gen: NAD, Awake and alert
Eyes: EOMI, PERRLA, no scleral icterus.
Neck: supple.
CV: RRR, +S1/S2, no m/r/g.
Resp: CTAB
Skin: No rashes. no LE edema
Neuro: CN 2-12 intact, non-focal.
Psych: Normal mood and affect.
CXR (read by me): Overall pulmonary findings are consistent with changes of COPD. In addition cardiomegaly and mild increase in pulmonary vascularity suggests possible CHF.
Echo:
1. Left ventricle: Dilated with severely reduced left ventricular systolic
function and estimated ejection fraction of 20% by visual estimation. There is
global hypokinesis.
2. Right ventricle: Normal
3. Atria: Mildly dilated
4. Mitral valve: Thickened with mitral annular calcification and moderate-
severe to severe eccentric mitral regurgitation
5. Aortic valve: Thickened trileaflet. No aortic stenosis or aortic
insufficiency
6. Tricuspid valve: Mild tricuspid regurgitation with estimated pulmonary
artery systolic pressures of 38 mmHg
Acute HFrEF:
-echo above, EF 30%, mod-sev MR, mild TR
-cont with Lasix 40mg IV Q12H
-daily wts, I/Os
-Toprol XL and ARB started
-GDMT only at this point as per discussion with cardiology
Essential hypertension:
-Start Toprol-XL/ARB
-Stop Cardizem
DM2:
-cont NPH and low res SSI as ordered
-check a1c
Pt's daughter updated at length.
Total time spent on today's encounter was 50 minutes which included time spent in counseling the patient/family regarding diagnosis and treatment plan as listed above, goals of care, and symptom management. Case was discussed with nursing staff,
specialists, and care coordinators/case management. All labs and imaging personally reviewed by me. Remainder the time spent in detailed review of previous records, lab data, imaging, and other medical provider documentation.
Original Note:
Today's Communication/Plan
-
C/w Lasix. Started on Toprol XL and Losartan per GDMT. Keep LDISS and probably discharge tomorrow.
Assessment / Plan
Assessment / Plan
88yo Female with a PMHx of HTN, IDDM who presented with Dyspnea on exertion x2 weeks & BL LE leg swelling
Daughters Chelsea & Kylie
#Acute Exacerbation of HFrEF
#Severe Mitral Regurgitation
- Prob BNP - 5350. CXR (+) increased pulmonary vascularity & enlarged heart.
- Echo - reduce LVSF & EF 20% w/ global hypokinesis, severe mitral regurgitation
- daily I/Os, daily weights, c/w Lasix 40mg BID
- trend BMP
#Hypertension - Started on metoprolol Succinate 25mg and Losartan 25mg. Stopped home Diltiazem.
#IDDM
- Add on A1C%
- Patient has recently received Exosome therapy for Type II DM
- Have on LDISS while admitted. Can likely return to home insulin dosing with follow up per PCP. Daughters aware.
Holding other vitamins during this time.
#Dispo - Med/surg + Tele
#Diet - Diabetic Diet/ <2g salt
#DVT PPx - Lovenox SC
#Code Status - Full Code
Anticipated Discharge: Within 24 hours
Subjective/Interval History
-
Seen in the AM. Patient has no acute complaints.
Objective Data
-
Vital Signs:
Vital Signs
Temp Pulse Resp BP Pulse Ox
98.9 F 99 18 134/74 94
03/20/24 23:02 03/20/24 23:02 03/20/24 23:02 03/20/24 23:02 03/20/24 23:02
I&O
03/20/24 03/21/24 03/22/24
06:59 06:59 06:59
Intake Total 480 / 480
Balance 480 / 480
Review of Systems
-
Unable to obtain full review of systems at this time due to: Dementia
History Source: Patient and Family
All other systems: Reviewed and negative
Physical Exam
-
General: Well Developed, Well Nourished, No Apparent Distress and Comfortable
HEENT: Normocephalic, Atraumatic, Moist Mucous Membranes, Anicteric, [place] Conjunctivae and PERRLA
Respiratory: Clear to Auscultation
Cardiac: Regular Rhythm and S1/S2
Breast: Deferred by me
GI: Soft, Nontender, Nondistended and Normal Bowel Sounds
Rectal: Deferred by Provider
Genito-urinary: Deferred by me
Musculoskeletal: No Clubbing, No Cyanosis and No Edema
Neuro: Awake, Alert, No Motor Deficits and Nonfocal/Grossly Intact
Psych: Calm
[2024-03-21] MEDS: LOW STRENGTH ASPIRIN 81 MG PO (08:47)
[2024-03-21] MEDS: CARDIZEM CD 180 MG PO (08:47)
[2024-03-21 09:12] VITALS: BMI 25.4
--- NOTE | 2024-03-21 10:56 | CM ---
Addendum entered by Gabrielle Lloyd 03/21/24 16:04:
CM spoke with patients daughter, Chelsea, discussed cost of medications. Chelsea would like to hold off on adding any additional medications at this time, TT to ANABELA Monge.
Addendum entered by Gabrielle Lloyd 03/21/24 11:42:
CM received consult for bennett check of Jardiance and Farxiga 10 mg. Per ambulatory orders, 30 day supply for both medications are $47.00. CM placed call to patients prescription coverage plan- [employer] [phone], spoke with Carry, retail bennett
for both medications for 30 day supply are $47.00, mail order bennett for 90 day supply is $126.00, will review with patient.
Original Note:
Patient seen bedside, initial assessment completed. Patient resides with her in a senior care community in [place], one floor. Patient reports she has two children and five grandchildren who are very supportive. Patient denies the use of
DME, no VN or SNF history. Patient confirms PCP Fabricio Ryder, pharmacy [facility] Patient confirms prescription coverage. CM will continue to follow for all discharge planning needs.
Plan; home no needs likely.
[2024-03-21 11:11] LABS: Blood Urea Nitrogen 22 mg/dl (7-17); Calcium 9.7 mg/dl (8.4-10.2); Carbon Dioxide 26 mmol/L (22-30); Chloride 101 mmol/L (98-107); Estimated Creatinine Clearance 31 ml/min; Glucose 283 mg/dl (70-99); Potassium 3.5 mmol/L (3.5-5.1); Sodium 142 mmol/L (135-145); eGFR 54.19
[2024-03-21 11:30] VITALS: BP 113/53
[2024-03-21 12:03] LABS: Glucose - Point of Care 356 mg/dl (70-99)
[2024-03-21 12:31] LABS: Glycohemoglobin (HgbA1c) 6.1 % (4.0-5.6)
[2024-03-21] MEDS: NOVOLOG FLEXPEN-LOW RESISTANCE 5 UNITS SC (12:55)
[2024-03-21 15:30] VITALS: BP 118/62
[2024-03-21 16:05] LABS: Glucose - Point of Care 192 mg/dl (70-99)
[2024-03-21] MEDS: LASIX 40 MG IV (17:13)
[2024-03-21] MEDS: NOVOLOG FLEXPEN-LOW RESISTANCE 1 UNITS SC (17:17)
[2024-03-21] MEDS: LOVENOX 40 MG SC (17:23)
[2024-03-21 19:45] VITALS: BP 135/63
[2024-03-21] MEDS: COZAAR 25 MG PO (20:02)
[2024-03-21 21:02] LABS: Glucose - Point of Care 200 mg/dl (70-99)
[2024-03-21] MEDS: HUMULIN N KWIKPEN 11 UNITS SC (21:08)
[2024-03-21 23:32] VITALS: BP 119/65
[2024-03-22 03:19] VITALS: BP 143/92
--- NOTE | 2024-03-22 05:32 | DOWNTIME ---
There was a [employer] Downtime on 03/22/2024 from 0100 to 03/22/2024 at 0300. Downtime documentation of patient's care, including medication administrations, has been reconciled in the electronic record per guidelines. Refer to the
patient's paper chart under the miscellaneous tab to see printed paper medication records and downtime forms.
[2024-03-22 06:00] VITALS: BMI 24.3
[2024-03-22 07:00] VITALS: BP 109/64
[2024-03-22 07:58] LABS: Glucose - Point of Care 151 mg/dl (70-99)
[2024-03-22] MEDS: COZAAR 25 MG PO (08:31)
[2024-03-22] MEDS: LOW STRENGTH ASPIRIN 81 MG PO (08:36)
[2024-03-22] MEDS: TOPROL XL 25 MG PO (08:36)
[2024-03-22 08:39] LABS: Blood Urea Nitrogen 26 mg/dl (7-17); Calcium 9.8 mg/dl (8.4-10.2); Carbon Dioxide 28 mmol/L (22-30); Chloride 101 mmol/L (98-107); Estimated Creatinine Clearance 34 ml/min; Glucose 128 mg/dl (70-99); Potassium 3.1 mmol/L (3.5-5.1); Sodium 142 mmol/L (135-145); eGFR > 60.00
[2024-03-22] MEDS: LASIX IV (08:39)
[2024-03-22] MEDS: NOVOLOG FLEXPEN-LOW RESISTANCE 1 UNITS SC (08:40)
--- NOTE | 2024-03-22 09:26 | W.PN.UPDATE ---
Update Note
Progress Note Update
case management researched bennett of SGLT2 inhibitor for new diagnosis of HFrEF. Family does not want to add additional medication at this time. Pt already starting Losartan and Metoprolol succinate and may also be discharged on oral diuretic.
could consider SGLT2 inhibitor in future.
--- NOTE | 2024-03-22 10:25 | CM ---
Patient seen with daughter, daughter reports patient is being discharged today, will provide transportation home. Patient/daughter denies needs upon discharge. IMM reviewed, signed, placed in chart. CM will continue to follow for all discharge
planning needs.
Plan; home with daughter, no needs.
[2024-03-22 11:00] VITALS: BP 114/64
[2024-03-22] MEDS: LASIX 40 MG PO (11:36)
[2024-03-22] MEDS: KCL 40 MEQ PO (11:37)
--- NOTE | 2024-03-22 11:40 | W.PN.HOSP.TC ---
Addendum entered and electronically signed by Erwin Devries MD 03/22/24 14:01:
I saw and evaluated the patient. I reviewed the resident�s note and agree with findings and plan as documented in the resident�s note.
Currently denies chest pain or shortness of breath.
Gen: NAD, Awake and alert
Eyes: EOMI, PERRLA, no scleral icterus.
Neck: supple.
CV: Remains RRR, +S1/S2, no m/r/g.
Resp: Remains CTAB
Skin: No rashes. Remains without LE edema
Neuro: CN 2-12 intact, non-focal.
Psych: Normal mood and affect.
CXR (read by me): Overall pulmonary findings are consistent with changes of COPD. In addition cardiomegaly and mild increase in pulmonary vascularity suggests possible CHF.
Echo:
1. Left ventricle: Dilated with severely reduced left ventricular systolic
function and estimated ejection fraction of 20% by visual estimation. There is
global hypokinesis.
2. Right ventricle: Normal
3. Atria: Mildly dilated
4. Mitral valve: Thickened with mitral annular calcification and moderate-
severe to severe eccentric mitral regurgitation
5. Aortic valve: Thickened trileaflet. No aortic stenosis or aortic
insufficiency
6. Tricuspid valve: Mild tricuspid regurgitation with estimated pulmonary
artery systolic pressures of 38 mmHg
Acute HFrEF:
-echo above, EF 30%, mod-sev MR, mild TR
-Patient was diuresed with IV Lasix
-daily wts, I/Os
-Toprol XL and ARB started
-GDMT only at this point as per discussion with cardiology
-Discharged on Lasix 40 mg by mouth daily supplement potassium
Essential hypertension:
-Started Toprol-XL/ARB
-home Cardizem stopped
DM2:
-a1c 6.1%
-resume home insulin regimen on d/c
Hypokalemia: PO K
Total time spent on d/c = 34 min. This included today's physical exam, progress note, review of laboratory and diagnostic data, preparation of discharge documents and prescriptions, and discussions about the pt's hospital course and discharge plan
with the patient and other pediatrician/medical doctor involved in the patient's care.
-cont NPH and low res SSI as ordered
-check a1c
Original Note:
Today's Communication/Plan
-
Discharge home on PO lasix 40mg QD and 20meq KCl PO w/ follow up PCP & bmp x1-2 weeks.
Assessment / Plan
Assessment / Plan
88yo Female with a PMHx of HTN, IDDM who presented with Dyspnea on exertion x2 weeks & BL LE leg swelling
Daughters Chelsea & Kylie
#Acute Exacerbation of HFrEF
#Severe Mitral Regurgitation
- Prob BNP - 5350. CXR (+) increased pulmonary vascularity & enlarged heart.
- Echo - reduce LVSF & EF 20% w/ global hypokinesis, severe mitral regurgitation
- Cardiology started on Losartan/Toprol for GDMT as below. Patient's family does not want SGLT2i at this time.
- Will transition to PO Lasix 40mg QD and 20meq KCL PO. Repeat BMP in 1-2weeks
#Hypertension - C/w metoprolol Succinate 25mg and Losartan 25mg. Stopped home Diltiazem.
#IDDM
- A1C% 6.1%
- Patient has recently received Exosome therapy for Type II DM
- Have on LDISS while admitted. Can likely return to home insulin dosing with follow up per PCP. Daughters aware.
Holding other vitamins during this time.
#Dispo - Med/surg + Tele
#Diet - Diabetic Diet/ <2g salt
#DVT PPx - Lovenox SC
#Code Status - Full Code
Anticipated Discharge: Today
Subjective/Interval History
-
Seen in the AM. She had no acute complaints and there were no events overnight.
Objective Data
-
Labs:
Laboratory Results
03/22/24
07:22
Sodium 142
Potassium 3.1 L
Chloride 101
Carbon Dioxide 28
BUN 26 H
Creatinine 0.9
Glucose 128 H
Calcium 9.8
Vital Signs:
Vital Signs
Temp Pulse Resp BP Pulse Ox
98.4 F 84 18 114/64 100
03/22/24 11:00 03/22/24 11:00 03/22/24 11:00 03/22/24 11:00 03/22/24 11:00
I&O
03/21/24 03/22/24 03/23/24
06:59 06:59 06:59
Intake Total 480 / 480
Balance 480 / 480
Review of Systems
-
Unable to obtain full review of systems at this time due to: Dementia
History Source: Patient
All other systems: Reviewed and negative
Physical Exam
-
General: Well Developed, Well Nourished, No Apparent Distress and Comfortable; Negative Respiratory Distress
HEENT: Normocephalic, Atraumatic, Moist Mucous Membranes, Anicteric, [place] Conjunctivae and PERRLA
Respiratory: Clear to Auscultation
Cardiac: Regular Rhythm and S1/S2
Breast: Deferred by me
GI: Soft, Nontender, Nondistended and Normal Bowel Sounds
Rectal: Deferred by Provider
Genito-urinary: Deferred by me
Musculoskeletal: No Clubbing, No Cyanosis and No Edema
Skin: Normal Turgor
Neuro: Awake, Alert, No Motor Deficits, Nonfocal/Grossly Intact and No Sensory Deficits
Psych: Calm
[2024-03-22 11:55] LABS: Glucose - Point of Care 210 mg/dl (70-99)
--- NOTE | 2024-03-22 12:08 | W.PN.CARDCBS ---
Addendum entered and electronically signed by Gustabo Henderson MD 03/22/24 13:33:
I saw and examined the patient.
The Freight Engineer's note was reviewed and I agree with the note.
Comment: Briefly, 88-year-old woman presenting with acute heart failure found to havenewly diagnosed cardiomyopathy with LVEF 20% and moderate to severe MR
With IV diuresis her volume status has improved
Plan to switch to oral diuretics, will discharge on 40 mg Lasix daily
Given hypokalemia would also order daily supplemental potassium
Plan to check BMP in 1 to 2 weeks
In regards to her cardiomyopathy, she has been started on beta-alison and ARB
Due to history of acute renal failure family would be hesitant to add any additional medications at this time, could consider SGLT2 and Aldactone as an outpatient
Given her advanced age and mild dementia would hold off on ischemic evaluation at this time, discussed with daughter at bedside and she is in agreement with this, can re-evaluate ischemic assessment as an outpatient
Stable for discharge from my perspective
Outpatient follow-up has been arranged
Original Note:
Today's Communication / Plan
-
po lasix 40mg daily
replete K
10mEq KCL daily upon DC
BMP/mag Tuesday 03/27 (script written)
toprol, losartan to continue. no CCB
OP cardiac follow up arranged
consider for OP ischemic eval/mitraclip eval
Impression / Plan
-
PCP:Dr Fabricio Ryder
Primary Reproduction Technician: none prior to admission
Impression:
acute HFrEF
Cardiomyopathy, EF 20%, unclear type
Mod to severe MR
HTN
DM Type 1
[place] edema
dementia
Acute kidney injury secondary to IV contrast 01/21
Stage I breast CA 2019
Cardiovascular studies:
Echo 03/20/24 EF 20%, dilated LV with global hypokinesis, normal RV, mod-severe MR, mild TR, PASP 38 mmHg
EK03/20/24 personally reviewed: NSR, LAD, can't r/o ant [place], nonspecific T wave abnormality
Plan:
-patient looks well and feeling much improved
-presented with SOB
-echo with new EF 20%.
-diuresed with improvement. plan for po lasix 40mg daily upon DC. Cr stable at 0.9
-replete K. plan for 10 mEq daily KCL upon DC
-started on toprol, losartan (OP cardizem stopped given new EF reduction). consideration for addition of OP spironolactone and SGLT2 inhibitor
-she has history of RHETT in setting of IV contrast per daughter and is concerned about daily diuretic moving forward. for BMP/mag on Wednesday to reassess kidney function
-trop negative. could consider for OP ischemic evaluation, however plan for medical mgmt at this time after discussion with patient/daughter
-will need follow up of mitral valve disease - possibly cause of acute CHF. consider for mitraclip eval as OP
-OP cardiac follow up arranged
-ok for DC to home today from cardiac standpoint
Progress Note - Reproduction Technician
Subjective
Date of Service: March 22, 2024
feels improved. eager for DC
Objective
Labs:
03/20/24 13:13
03/22/24 07:22
Labs
Hgb 11.7 g/dL (12.0-16.0) L 03/20/24 13:13
Hct 35.0 % (37.0-47.0) L 03/20/24 13:13
Plt Count 200 10^3/uL (130-400) 03/20/24 13:13
Sodium 142 mmol/L (135-145) 03/22/24 07:22
Potassium 3.1 mmol/L (3.5-5.1) L 03/22/24 07:22
BUN 26 mg/dl (7-17) H 03/22/24 07:22
Creatinine 0.9 mg/dL (0.6-1.0) 03/22/24 07:22
Glucose 128 mg/dl (70-99) H 03/22/24 07:22
Troponins
03/20/24
13:13
Troponin I 0.022
Vital Signs and I&O:
Vital Signs
Temp Pulse Resp BP Pulse Ox
98.4 F 84 18 114/64 100
03/22/24 11:00 03/22/24 11:36 03/22/24 11:00 03/22/24 11:36 03/22/24 11:00
Vital Signs
Temp Pulse Resp BP Pulse Ox
98.4 F 84 18 114/64 100
03/22/24 11:00 03/22/24 11:36 03/22/24 11:00 03/22/24 11:36 03/22/24 11:00
Intake & Output
03/20/24 03/21/24 03/22/24 03/23/24
07:59 07:59 07:59 07:59
Intake Total 480 / 480
Balance 480 / 480
Physical Exam
Physical Exam
GEN: No distress, awake, alert, oriented to self, place. forgetful at times. sitting in chair
HEENT: supple, anicteric, mmm, eomi
LUNGS: CTA B/L, no wheezes/rales
CV: Reg, S1/S2, 2/6 murmur
ABD: soft, BS+, NT/ND
EXT: No cyanosis, clubbing, edema
NEURO: Gross non-focal
SKIN: Warm, pink, dry. No rash
[2024-03-22] MEDS: NOVOLOG FLEXPEN-LOW RESISTANCE 2 UNITS SC (12:57)
--- NOTE | 2024-03-22 16:53 | W.DCSUMMARY ---
Addendum entered and electronically signed by Erwin Devries MD 03/22/24 17:39:
Read, reviewed, and agree. See same day progress note for additional details.
Original Note:
Discharge Summary
Discharge Data
Date of Admission: 03/20/24
Date of Discharge: 03/22/24
-
Pending Results: No
Hospital Course
Discharging Physician : Dr. Gio Vieyra, Dr. Erwin Devries
Disposition : Home
Primary care physician : Fabricio Ryder DO
Principal Discharge diagnosis : Acute Exacerbation of Heart Failure with Reduced Ejection Fraction,
Chronic Discharge diagnosis : Insulin Dependent Diabetes Mellitus, Hypertension
Hospital Course :
Laura Zuniga is a pleasant 88 yo woman who [facility] by her daughter for 2 weeks of increased shortness of breath, dyspnea on exertion, leg swelling and trouble sleeping. Pulse oximetry in the ED was between 89-100% on
room air. She was given one dose of IV lasix 40mg and was scheduled for an Echocardiogram. Pro-BNP was 5350 and a chest X-ray showed enlarged heart and pulmonary findings suggestive of congestive heart failure. Cardiology was consulted and the
patient was admitted for workup/management.
Initially, patient's home dose of Diltiazem was continued, but was subsequently changed to Metoprolol XL and Losartan in accordance with GDMT for patients with heart failure and reduced ejection fraction with a goal of preventing cardiac
remodelling and improving mortality. While in the hospital, Mrs. Zuniga continued on Lasix for diuresis and had her blood sugars managed with a low dose insulin sliding scale. An A1C% was done which demonstrated a value of 6.1%, indicating well
controlled diabetes. She continued to improve clinically and on hospital day 3 she was discharged home on Losartan 25mg once daily, Metoprolol Succinate 25mg daily, Lasix 40mg daily and a potassium supplement of 20mEq once daily to prevent excessive
potassium loss secondary to diuretics.
Important imaging findings :
Echocardiography Report:
CONCLUSIONS
1. Left ventricle: Dilated with severely reduced left ventricular systolic function and estimated ejection fraction of 20% by visual estimation. There is global hypokinesis.
2. Right ventricle: Normal
3. Atria: Mildly dilated
4. Mitral valve: Thickened with mitral annular calcification and moderate-severe to severe eccentric mitral regurgitation
5. Aortic valve: Thickened trileaflet. No aortic stenosis or aortic insufficiency
6. Tricuspid valve: Mild tricuspid regurgitation with estimated pulmonary artery systolic pressures of 38 mmHg
7. No prior echocardiogram for comparison
Procedure findings : N/A
Discharge Plan
-
Patient Disposition: Home (Routine Discharge)
Discharge Diagnosis/Procedures: Heart failure, cardiomyopathy
Condition: Fair
Diet: 2 Gram Sodium and Restrict fluids to 48 oz
Activity: As tolerated
Driving Restrictions: As prior to admission
Bathing Restrictions: None
Blood Work: BMP/magnesium on Wednesday03/27/24
Specialty Instructions: Weigh Daily- Call MD for wt gain/loss 3 lbs overnight/5 lbs in 1 week
Instructions: *[facility] Heart Failure Instructions
Referrals:
Jacinto Solorio MD [Active] - 03/28/24 4:20 pm (You have a cardiology follow up appointment at the [place] office. Please call with questions. )
Fabricio Ryder DO [Family Provider] -
Prescriptions:
New
losartan 25 mg Tablet
25 mg PO DAILY 30 Days Qty: 30 2RF
metoprolol succinate 25 mg Tablet Extended Release 24 Hr
25 mg PO DAILY 30 Days Qty: 30 2RF
potassium chloride 20 mEq tablet extended release
20 meq PO DAILY 30 Days Qty: 30 2RF
Rx Instructions:
Take one 20mEq tablet once per day
furosemide [Lasix] 40 mg tablet
40 mg PO DAILY 30 Days Qty: 30 2RF
Continued
Humulin N NPH U-100 Insulin 100 UNIT/ML suspension
0 unit SC AC
Rx Instructions:
SLIDING SCALE
Nephrowise 500mg
2 cap PO BID
Pgu Aid 500mg
2 cap PO BID
vanadyl 10 mg Tablet
10 mg PO BID
ascorbic acid (vitamin C) [Vitamin C] 500 mg Tablet
500 mg PO BID
aspirin 81 mg Tablet,Chewable
81 mg PO DAILY
vitamin B complex Tablet
1 tab PO BID
cholecalciferol (vitamin D3) [Vitamin D3] 125 mcg (5,000 unit) Tablet
125 mcg PO DAILY
omega 2-ezu-mwb-fish oil [Fish Oil] 1,000 (120-180) mg Capsule
1 cap PO BID
Nattokinase 50 mg Capsule
50 mg PO AC
vitamin K2 90 mcg Capsule
90 mcg PO DAILY
Discontinued
diltiazem HCl 180 MG capsule,extended release 24hr
180 mg PO BID
Discharge Orders:
Discharge Patient (As Directed); Ordered 03/22/24
Ordered By: Gio Vieyra
Discharge Date and Time
Discharge Date/Time: 03/22/24 15:17
Print Language: LEBANESE
--- NOTE | 2024-03-24 09:57 | W.HF.CON ---
Heart Failure
- LV Function
Left ventricular function study result: LV Ejection fraction </= 35%
Ejection Fraction Percentage: 20
- ARNI
Patient already on ARNI: No
Heart Failure ARNI Contraindication: Patient Refusal
Heart Failure ARNI Not Indicated: LV Ejection Fraction >/= 40%
- ACEI/ARB
Patient already on ACEI/ARB: Yes
- Beta Zuleima
Patient already on Evidence Based Beta Zuleima: Yes
- Mineralocorticord Receptor Antagonist
Patient already on MRA: No
Heart Failure MRA Contraindication: Patient Refusal
- SGLT-2 Inhibitor
Patient already on SGLT-2 Inhibitor: No
Heart Failure SGLT-2 Inhibitor Contraindication: Patient Refusal
- NYHA CHF Classification
NYHA CHF Classification Level: Class III - Symptoms w/ min exertion, interferes w/ nml daily activity
- ACC/AHA Stage
ACC/AHA Stage: Stage C: Symptomatic Heart Failure
== END 2024-03-22 15:17 | disposition home or self-care (01) | DRG 291 ==
LOC: 4 EAST ACU 17:51
PROVIDERS: Physician Assistant; ADMITTING PHYSICIAN Internal Medicine; EMERGENCY PHYSICIAN Student in an Organized Health Care Education/Training Program; FAMILY PHYSICIAN Family Medicine; OTHER PHYSICIAN Internal Medicine Cardiovascular Disease
DX: I11.0 Hypertensive heart disease with heart failure (principal); I50.23 Acute on chronic systolic (congestive) heart failure; F03.90 Unspecified dementia, unspecified severity, without behavioral disturbance, psychotic disturbance, mood disturbance, and anxiety; E10.9 Type 1 diabetes mellitus without complications; I34.0 Nonrheumatic mitral (valve) insufficiency; I34.81 Nonrheumatic mitral (valve) annulus calcification; J44.9 Chronic obstructive pulmonary disease, unspecified; I42.9 Cardiomyopathy, unspecified; Z79.4 Long term (current) use of insulin; Z79.82 Long term (current) use of aspirin; Z79.899 Other long term (current) drug therapy; Z85.3 Personal history of malignant neoplasm of breast
CPT/HCPCS: 71046; 80048; 80053; 82962; 83036; 83880; 84484; 85025; 93005; 93306; 96374; 99285

== ENCOUNTER → 2024-06-21 12:44 | Outpatient (REF) | payer MEDICARE, OTHER, SELFPAY | LOC: RAD 12:44 | PROVIDERS: ATTENDING PHYSICIAN Family Medicine | DX: I65.23 Occlusion and stenosis of bilateral carotid arteries (principal) | CPT/HCPCS: 93880 ==

== ENCOUNTER → 2024-06-22 11:12 | Outpatient (REF) | payer MEDICARE, OTHER, SELFPAY | LOC: RCS 11:12 | PROVIDERS: ATTENDING PHYSICIAN Internal Medicine Cardiovascular Disease; FAMILY PHYSICIAN Family Medicine | DX: I42.9 Cardiomyopathy, unspecified (principal) | CPT/HCPCS: 93306 ==